=== PATIENT | female | born 1930 | race Caucasian/White ===

== ENCOUNTER 2016-12-15 18:19 | Inpatient (IN) | payer MEDICARE, OTHER ==
--- NOTE | 2016-12-15 19:29 | RADIOLOGY REPORT (SQ) ---
EXAM DESCRIPTION: HIP RIGHT AP/LATERAL COMPLETED DATE/TIME: 12/15/2016 7:13 pm REASON FOR STUDY: FALL COMPARISON: None. NUMBER OF VIEWS: Two views. TECHNIQUE: AP pelvis and additional frog-leg view of the right hip. LIMITATIONS: None. FINDINGS: MINERALIZATION: Normal. RIGHT HIP: No fracture or dislocation. No worrisome bone lesions. LEFT HIP: No fracture or dislocation. No worrisome bone lesions. PUBIS AND ISCHIUM: Right superior and right inferior pubic rami fractures. PELVIS: No fracture. SACRUM: No fracture or dislocation. No worrisome bone lesions. LOWER LUMBAR SPINE: No fracture or dislocation. No worrisome bone lesions. No significant disc disea se. SOFT TISSUES: No findings. OTHER: No other significant finding. IMPRESSION: RIGHT SUPERIOR AND RIGHT INFERIOR PUBIC RAMI FRACTURES. NO FEMORAL NECK FRACTURE. TECHNICAL DOCUMENTATION: JOB ID: [id number] [employer]- All Rights Reserved
[2016-12-15] MEDS ORDERED: ACETAMINOPHEN 325 MG TABLET PO ONE (20:10)
--- NOTE | 2016-12-15 20:11 | ER Document Report ---
ED General - General Chief Complaint: Fall Stated Complaint: RT HIP PAIN Time Seen by Provider: 12/15/16 19:18 Notes: Patient is an 85-year-old female who presents after having a mechanical fall landing onto her right hip and elbow. Patient states that since that time she has had a dull, constant, aching pain to the right hip. Any movement of the hip or attempts at walking or standing worsen the pain. She states that she has been unable to bear weight without assistance since the fall. She denies any head or neck trauma. She denies any history of similar injury to the right hip in the past. She does arrive by EMS. TRAVEL OUTSIDE OF THE [place] IN LAST 30 DAYS: No - Related Data Allergies/Adverse Reactions: No Known Allergies Allergy (Verified 12/15/16 20:35) Home Medications: Current Home Medications Aspirin [Aspirin EC] 81 mg PO DAILY 12/15/16 [History] Carvedilol [Coreg 6.25 mg Tablet] 6.25 mg PO Q12 12/15/16 [History] Valsartan [Diovan 160 mg Tablet] 160 mg PO QAM 12/15/16 [History] Past Medical History - General Information source: Patient - Social History Smoking Status: Never Smoker Chew tobacco use (# tins/day): No Frequency of alcohol use: None Drug Abuse: None Lives with: Spouse/Significant other Family History: Reviewed & Not Pertinent - Past Medical History Cardiac Medical History: Reports: Hx Hypertension Past Surgical History: Reports: Hx Appendectomy, Hx Bowel Surgery, Hx Cardiac Catheterization, Hx Tonsillectomy - Immunizations Hx Diphtheria, Pertussis, Tetanus Vaccination: Yes Review of Systems - Review of Systems Notes: Constitutional: Negative for fever. Eyes: Negative for visual changes. ENT: Negative for facial injury Cardiovascular: Negative for chest injury. Respiratory: Negative for shortness of breath. Gastrointestinal: Negative for abdominal injury. Genitourinary: Negative for genital injury Musculoskeletal: Positive for right hip and right elbow injury Skin: Positive for laceration/abrasions. Neurological: Negative for head injury. Physical Exam - Vital signs Vitals: Temp Pulse Resp BP Pulse Ox 98 F 70 15 192/78 H 98 12/15/16 18:55 12/15/16 18:55 12/15/16 18:55 12/15/16 18:55 12/15/16 18:55 Interpretation: Hypertensive Notes: PHYSICAL EXAMINATION: GENERAL: Well-appearing, no acute distress. HEAD: Atraumatic, normocephalic. EYES: Pupils equal round and reactive to light, extraocular movements intact, sclera anicteric, conjunctiva are normal. ENT: nares patent, no oral pharyngeal trauma. No hemotympanum, no Huntley's sign , no raccoon eyes. NECK: No midline cervical spine tenderness. Patient able to move their head to 45 bilaterally without any discomfort. LUNGS: Breath sounds clear to auscultation bilaterally and equal. No wheezes rales or rhonchi. HEART: Regular rate and rhythm without murmurs. CHEST WALL: No ecchymosis over the chest wall. ABDOMEN: Soft, nontender, normoactive bowel sounds. No guarding, no rebound. No abdominal bruising EXTREMITIES: Mild pain with axial loading of the right hip and internal rotation of the right hip. No pitting or edema. No long bone deformities. BACK: No midline spinal tenderness, step-offs, or deformities. NEUROLOGICAL: Face symmetric. Tongue protrudes midline. Extraocular motions intact. Pupils are 2 mm and equally reactive. 5 out of 5 strength in both the distal and proximal upper and lower extremities bilaterally. Sensation is grossly intact throughout. Finger to nose testing normal. Pronator drift normal. PSYCH: Normal mood, normal affect. SKIN: Warm, Dry, normal turgor, skin avulsions to the right elbow without any deformity to the region Course - Re-evaluation Re-evalutation: 12/15/16 20:10 Patient presents after a mechanical fall onto her right hip. Patient is very clear that she did not strike her head or neck. X-rays do demonstrate a superior and inferior rami fracture on the right. Patient has not been able to ambulate or bear weight since that time. She did also sustain a skin avulsion to the right elbow without any repairable lacerations. Uncertain of last tetanus update. This has been given. We do not have orthopedic surgery supervisor stone but given that these rami fractures are not surgical, I have discussed with the family transfer versus staying here in the hospital for physical therapy assessment and disposition planning. They are agreeable to not being transferred and recognized that they will not have an orthopedic surgical consultation during this hospitalization. - Vital Signs Vital signs: Temp Pulse Resp BP Pulse Ox 97.7 F 91 18 176/70 H 98 10/14/17 00:37 12/16/16 00:37 12/16/16 00:37 12/16/16 00:37 12/16/16 00:37 - Laboratory Result Diagrams: 12/15/16 20:20 12/15/16 20:20 Laboratory results interpreted by me: 12/15/16 12/15/16 20:20 20:22 BUN 24 H Creatinine 1.86 H Est GFR ( Amer) 31 L Est GFR (Non-Af Amer) 26 L Urine Urobilinogen 2.0 H - Diagnostic Test Radiology reviewed: Image reviewed, Reports reviewed Radiology results interpreted by me: 12/15/16 20:11 Right hip: Superior and inferior rami fractures Discharge - Discharge Clinical Impression: Fracture of right pelvis Qualifiers: Encounter type: initial encounter Pelvic bone location: pubis Sublocation of pubis: other portion of pubis Fracture type: closed Qualified Code(s): S32.591A - Other specified fracture of right pubis, initial encounter for closed fracture Condition: Good Disposition: ADMITTED INPATIENT Admitting Provider: Hospitalist - [facility] Unit Admitted: Medical Floor
[2016-12-15] MEDS ORDERED: HYDRALAZINE HCL INJ/PF 20 MG/1 ML SDV IV PRN (20:36)
[2016-12-15] MEDS ORDERED: MAG HYDROX/AL HYDROX/SIMETH SUSP 30 ML UDCUP PO PRN (20:37)
[2016-12-15 20:56] LABS: ABSOLUTE EOSINOPHILS # (AUTO) 0.1 10^3/uL (0.0-0.6); ABSOLUTE LYMPHOCYTES (AUTO) 1.5 10^3/uL (0.5-4.7); ABSOLUTE MONOCYTES (AUTO) 0.4 10^3/uL (0.1-1.4); ABSOLUTE NEUT (AUTO) 4.2 10^3/uL (1.7-8.2); BASOPHILS % (AUTO) 0.2 % (0-2); EOSINOPHILS % (AUTO) 1.3 % (0-6); HEMATOCRIT 38.3 % (36.0-47.0); HEMOGLOBIN 13.2 g/dL (12.0-15.5); HGB HCT DIFFERENCE 1.3; LYMPHOCYTES % (AUTO) 23.7 % (13-45); MEAN CORPUSCULAR HEMOGLOBIN 32.4 pg (27.0-33.4); MEAN CORPUSCULAR HGB CONC 34.5 g/dL (32.0-36.0); MEAN CORPUSCULAR VOLUME 94 fl (80-97); MONOCYTES % (AUTO) 6.3 % (3-13); RED BLOOD COUNT 4.07 10^6/uL (3.72-5.28); RED CELL DISTRIBUTION WIDTH 13.3 % (11.5-14.0); SEGMENTED NEUTROPHILS % (AUTO) 68.5 % (42-78); WHITE BLOOD COUNT 6.1 10^3/uL (4.0-10.5)
[2016-12-15 20:59] LABS: APPEARANCE,URINE CLEAR; BILIRUBIN,URINE NEGATIVE (NEGATIVE); GLUCOSE, URINE NEGATIVE (NEGATIVE); KETONES,URINE NEGATIVE (NEGATIVE); LEUKOCYTE ESTERASE,URINE NEGATIVE (NEGATIVE); NITRITE,URINE NEGATIVE (NEGATIVE); PROTEIN,URINE NEGATIVE (NEGATIVE); URINE SPECIFIC GRAVITY 1.005
[2016-12-15 21:12] LABS: ANION GAP 14 (5-19); BLOOD UREA NITROGEN 24 mg/dL (7-20); CALCIUM 9.5 mg/dL (8.4-10.2); CARBON DIOXIDE 23 mmol/L (22-30); CHLORIDE 103 mmol/L (98-107); CREATININE RESULT 1.86 mg/dL (0.52-1.25); GLUCOSE 97 mg/dL (75-110); POTASSIUM 4.2 mmol/L (3.6-5.0); SODIUM 139.8 mmol/L (137-145)
[2016-12-15] MEDS ORDERED: INFLUENZA ADLT QUAD (36MOS+) 2017-18 VAC 0.5 ML SYR IM PRN (23:45)
[2016-12-16] MEDS ORDERED: NORMAL SALINE 1000 ML 1,000 ML IV PRN (00:45)
[2016-12-16] MEDS: CARVEDILOL 6.25 MG TABLET PO SCH ×3 (01:25→22:50)
[2016-12-16] MEDS: HEPARIN SOD (PORCINE) 5,000 UNIT/ML 1 ML SYRINGE SUBCUT SCH ×4 (02:51→23:27)
--- NOTE | 2016-12-16 06:36 | PDOC H&P ---
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 She had been in her usual state of health until sustaining a mechanical fall missing the last step of a staircase. This resulted in a fall to the right side and intractable pain with weightbearing prompting evaluation emergency room where she is found to have right sided inferior and superior rami fracture without femoral fracture. Patient states she otherwise feels well and is not on any new medications that may have contributed to fall. Her lab workup reveals renal failure but unknown baseline. She denies head trauma, loss of consciousness, chest pain or shortness of breath and is referred to the hospitalist for admission. Past Medical History Cardiac Medical History: Reports: Hypertension Pulmonary Medical History: Reports: None EENT Medical History: Reports: Eyes - Macular degeneration and blindness Past Surgical History Past Surgical History: Reports: Appendectomy, Cardiac Catheterization, Tonsillectomy Social History Information Source: Patient, Emergency Med Personnel, [facility] Records Lives with: Spouse/Significant other Smoking Status: Never Smoker Frequency of Alcohol Use: None Drugs: None Family History Family History: Reviewed & Not Pertinent Parental Family History Reviewed: No Children Family History Reviewed: No Sibling(s) Family History Reviewed.: No Medication/Allergy Home Medications: Aspirin [Aspirin EC] 81 mg PO DAILY 12/15/16 Carvedilol [Coreg 6.25 mg Tablet] 6.25 mg PO Q12 12/15/16 Valsartan [Diovan 160 mg Tablet] 160 mg PO QAM 12/15/16 Allergies/Adverse Reactions: No Known Allergies Allergy (Verified 12/15/16 20:35) Review of Systems Constitutional: ABSENT: chills, fever(s), headache(s), weight gain, weight loss Eyes: ABSENT: visual disturbances Ears: ABSENT: hearing changes Cardiovascular: ABSENT: chest pain, dyspnea on exertion, edema, orthropnea, palpitations Respiratory: ABSENT: cough, hemoptysis Gastrointestinal: ABSENT: abdominal pain, constipation, diarrhea, hematemesis, hematochezia, nausea, vomiting Genitourinary: ABSENT: dysuria, hematuria Musculoskeletal: ABSENT: joint swelling Integumentary: ABSENT: rash, wounds Neurological: ABSENT: abnormal gait, abnormal speech, confusion, dizziness, focal weakness, syncope Psychiatric: ABSENT: anxiety, depression, homidical ideation, suicidal ideation Endocrine: ABSENT: cold intolerance, heat intolerance, polydipsia, polyuria Hematologic/Lymphatic: ABSENT: easy bleeding, easy bruising Physical Exam Vital Signs: Temp Pulse Resp BP Pulse Ox 97.6 F 74 18 122/60 94 12/16/16 03:59 12/16/16 03:59 12/16/16 03:59 12/16/16 03:59 12/16/16 03:59 Intake & Output 12/14/16 12/15/16 12/16/16 11:59 11:59 11:59 Weight 64.4 kg General appearance: PRESENT: cooperative, mild distress, well-developed, well- nourished Head exam: PRESENT: atraumatic, normocephalic Eye exam: PRESENT: conjunctiva pink, EOMI, PERRLA. ABSENT: scleral icterus Ear exam: PRESENT: normal external ear exam Mouth exam: PRESENT: moist, tongue midline Neck exam: ABSENT: carotid bruit, JVD, lymphadenopathy, thyromegaly Respiratory exam: PRESENT: clear to auscultation roselia. ABSENT: rales, rhonchi, wheezes Cardiovascular exam: PRESENT: RRR. ABSENT: diastolic murmur, rubs, systolic murmur Pulses: PRESENT: normal dorsalis pedis pul Vascular exam: PRESENT: normal capillary refill GI/Abdominal exam: PRESENT: normal bowel sounds, soft. ABSENT: distended, guarding, mass, organolmegaly, rebound, tenderness Rectal exam: PRESENT: deferred Extremities exam: PRESENT: tenderness - Right lower extremity range of motion limited by pain. ABSENT: calf tenderness, clubbing, full ROM, pedal edema Musculoskeletal exam: ABSENT: full ROM - Right lower extremity range of motion limited by pain Neurological exam: PRESENT: alert, awake, oriented to person, oriented to place , oriented to time, oriented to situation, CN II-XII grossly intact. ABSENT: motor sensory deficit Psychiatric exam: PRESENT: appropriate affect, normal mood. ABSENT: homicidal ideation, suicidal ideation Skin exam: PRESENT: dry, intact, warm. ABSENT: cyanosis, rash Results Impressions: Hip/Pelvis X-Ray 12/15/16 18:54 IMPRESSION: RIGHT SUPERIOR AND RIGHT INFERIOR PUBIC RAMI FRACTURES. NO FEMORAL NECK FRACTURE. Assessment & Plan - Diagnosis (1) Fracture of right pelvis Qualifiers: Encounter type: initial encounter Pelvic bone location: pubis Sublocation of pubis: other portion of pubis Fracture type: closed Qualified Code(s): S32.591A - Other specified fracture of right pubis, initial encounter for closed fracture Is this a current diagnosis for this admission?: Yes Plan: Nondisplaced pelvic fracture symptomatic management and physical therapy. Discharge planning for consideration of rehab (2) Intractable pain Is this a current diagnosis for this admission?: Yes Plan: Renal failure limiting options, Tylenol and lidocaine patch. (3) Falls Is this a current diagnosis for this admission?: Yes Plan: Physical therapy evaluation (4) Renal failure Is this a current diagnosis for this admission?: Yes Plan: Somewhat prerenal IV fluid challenge and reevaluation of chemistry. - Time Time Spent: 30 to 50 Minutes - Inpatient Certification Medical Necessity: Need Close Monitoring Due to Risk of Patient Decompensation
[2016-12-16 06:57] LABS: ANION GAP 8 (5-19); BLOOD UREA NITROGEN 23 mg/dL (7-20); CALCIUM 8.9 mg/dL (8.4-10.2); CARBON DIOXIDE 24 mmol/L (22-30); CHLORIDE 107 mmol/L (98-107); CREATININE RESULT 1.81 mg/dL (0.52-1.25); GLUCOSE 90 mg/dL (75-110); POTASSIUM 4.6 mmol/L (3.6-5.0); SODIUM 139.4 mmol/L (137-145)
[2016-12-16] MEDS: ACETAMINOPHEN 325 MG TABLET PO PRN (09:11)
[2016-12-16] MEDS: VALSARTAN 160 MG TABLET PO SCH (09:11)
[2016-12-16] MEDS ORDERED: SULFAMETHOXAZOLE/TRIMETHOPRIM 800-160 MG TABLET PO ONE (11:00)
[2016-12-16] MEDS: ASPIRIN 81 MG TABLET, ENT COATED PO SCH (11:23)
[2016-12-16] MEDS: DOCUSATE SODIUM 100 MG CAPSULE PO SCH ×2 (11:24→17:25)
[2016-12-16] MEDS ORDERED: LIDOCAINE 5% (700 MG) TRANSDERMAL ADH..PATCH TP ONE (12:00)
--- NOTE | 2016-12-16 12:04 | PDOC PROGRESS REPORT ---
Subjective Progress Note for:: 12/16/16 Subjective:: Pt is seen resting in bed comfortably with her daughter present. She reports that she is relatively pain free when lying still. She did work with PT/OT this morning and was able to take one step. She reports nasal congestion related to allergic symptoms and requests to take her flonase and to be placed on an allergy medication. She also asks to have her LLE looked at. She reports a wound to her leg from a fall approximately a month ago that became infected. She completed a course of keflex without improvements and so was then placed on Bactrim with Silvadene dressings. She reports that the wound has improved since beginning this course of therapy and requests to continue it while admitted. Otherwise, she states she is feeling fine and has no other questions or concerns. ROS as above and otherwise negative. Physical Exam Vital Signs: Temp Pulse Resp BP Pulse Ox 98.2 F 77 16 148/63 H 98 12/16/16 08:02 12/16/16 08:02 12/16/16 08:02 12/16/16 08:02 12/16/16 08:02 Intake & Output 12/15/16 12/16/16 12/17/16 06:59 06:59 06:59 Weight 64.4 kg General appearance: PRESENT: no acute distress, cooperative, well-developed, well-nourished Head exam: PRESENT: atraumatic, normocephalic Eye exam: PRESENT: conjunctiva pink, EOMI, PERRLA. ABSENT: scleral icterus Ear exam: PRESENT: normal external ear exam Mouth exam: PRESENT: moist, tongue midline Neck exam: ABSENT: carotid bruit, JVD, lymphadenopathy, thyromegaly Respiratory exam: PRESENT: clear to auscultation roselia. ABSENT: rales, rhonchi, wheezes Cardiovascular exam: PRESENT: RRR. ABSENT: diastolic murmur, rubs, systolic murmur Pulses: PRESENT: normal dorsalis pedis pul Vascular exam: PRESENT: normal capillary refill GI/Abdominal exam: PRESENT: normal bowel sounds, soft. ABSENT: distended, guarding, mass, organolmegaly, rebound, tenderness Rectal exam: PRESENT: deferred Extremities exam: PRESENT: tenderness - Right lower extremity ROM is limited by pain. ABSENT: calf tenderness, clubbing, pedal edema Neurological exam: PRESENT: alert, awake, oriented to person, oriented to place , oriented to time, oriented to situation, CN II-XII grossly intact. ABSENT: motor sensory deficit Psychiatric exam: PRESENT: appropriate affect, normal mood. ABSENT: homicidal ideation, suicidal ideation Skin exam: PRESENT: dry, warm. ABSENT: cyanosis, intact - Approximately 6 x 3 cm wound to anterior left lower leg. Wound bed w/ slough present. No purulent drainage or foul smell. Surrounding skin is w/o erythema., rash Results Laboratory Results: 12/16/16 06:30 12/16/16 06:30 Sodium 139.4 Potassium 4.6 Chloride 107 Carbon Dioxide 24 Anion Gap 8 BUN 23 H Creatinine 1.81 H Est GFR ( Amer) 32 L Est GFR (Non-Af Amer) 26 L Glucose 90 Calcium 8.9 Impressions: Hip/Pelvis X-Ray 12/15/16 18:54 IMPRESSION: RIGHT SUPERIOR AND RIGHT INFERIOR PUBIC RAMI FRACTURES. NO FEMORAL NECK FRACTURE. Assessment & Plan - Diagnosis (1) Fracture of right pelvis Qualifiers: Encounter type: initial encounter Pelvic bone location: pubis Sublocation of pubis: other portion of pubis Fracture type: closed Qualified Code(s): S32.591A - Other specified fracture of right pubis, initial encounter for closed fracture Is this a current diagnosis for this admission?: Yes Plan: Nondisplaced pelvic fracture. 1- Appreciate Pt/OT 2- Tylenol and Lidocaine patch 3- Low dose hydrocodone for break through pain 4- Discharge planning for consideration of rehab (2) Intractable pain Is this a current diagnosis for this admission?: Yes Plan: Plan as above. (3) Renal failure Qualifiers: Renal failure chronicity: unspecified chronicity Qualified Code(s): N19 - Unspecified kidney failure Is this a current diagnosis for this admission?: Yes Plan: IVF replacement; will monitor labs. 1- Avoid nephrotoxic medications (4) Wound of skin Plan: Wound to lower left leg present on admission. 1- Wet to dry dressing BID 2- Continue Bactrim (5) Falls Is this a current diagnosis for this admission?: Yes Plan: 1- Appreciate PT/OT 2- Will benefit from rehab - Time Time Spent with patient: 15-24 minutes Medications reviewed and adjusted accordingly: Yes Anticipated discharge: Acute Rehab Within: within 36 hours
[2016-12-16] MEDS: SIMETHICONE 80 MG TAB.CHEW PO PRN (17:25)
[2016-12-16] MEDS: HYDROCODONE/ACETAMINOPHEN 5-325 MG TABLET PO PRN (22:49)
[2016-12-16] MEDS: SULFAMETHOXAZOLE/TRIMETHOPRIM 800-160 MG TABLET PO SCH (22:50)
[2016-12-16] MEDS: CETIRIZINE 10 MG TABLET PO SCH (22:50)
[2016-12-17] MEDS: SIMETHICONE 80 MG TAB.CHEW PO PRN ×2 (04:37→10:23)
[2016-12-17] MEDS: HEPARIN SOD (PORCINE) 5,000 UNIT/ML 1 ML SYRINGE SUBCUT SCH ×3 (05:29→21:09)
[2016-12-17 07:23] LABS: ANION GAP 11 (5-19); BLOOD UREA NITROGEN 18 mg/dL (7-20); CALCIUM 9.2 mg/dL (8.4-10.2); CARBON DIOXIDE 20 mmol/L (22-30); CHLORIDE 107 mmol/L (98-107); CREATININE RESULT 1.67 mg/dL (0.52-1.25); GLUCOSE 113 mg/dL (75-110); SODIUM 137.7 mmol/L (137-145)
[2016-12-17] MEDS ORDERED: CARVEDILOL 6.25 MG TABLET PO ONE (09:30)
--- NOTE | 2016-12-17 09:34 | RADIOLOGY REPORT (SQ) ---
EXAM DESCRIPTION: ABDOMEN 2 VIEWS COMPLETED DATE/TIME: 12/17/2016 8:50 am REASON FOR STUDY: abd discomfort, distention COMPARISON: None. NUMBER OF VIEWS: Two views. TECHNIQUE: Supine and upright radiographic images of the abdomen acquired. LIMITATIONS: None. FINDINGS: FREE AIR: None. No abnormal gas collections. LUNG BASES: Clear. BOWEL GAS PATTERN: There is stool in the ascending colon and rectosigmoid. Gaseous distension of the remainder of the colon. Few air-filled dilated small bowel loops are present in the mid abdomen. M ild gaseous distension of the stomach fundus. This is an abnormal but nonspecific bowel gas pattern. There is evidence of prior surgery in the right lower quadrant and pelvis with multiple surgical cl ips. CALCIFICATIONS: No suspicious calcifications. SOFT TISSUES: No gross mass or suggestion of organomegaly. HARDWARE: Multiple surgical clips in the right lower quadrant and pelvis BONES: Osteoporotic. No acute changes OTHER: No other significant finding. IMPRESSION: Abnormal but nonspecific bowel gas pattern. TECHNICAL DOCUMENTATION: JOB ID: [id number] [employer]- All Rights Reserved
--- NOTE | 2016-12-17 09:35 | RADIOLOGY REPORT (SQ) ---
EXAM DESCRIPTION: CHEST SINGLE VIEW COMPLETED DATE/TIME: 12/17/2016 9:20 am REASON FOR STUDY: chest discomfort COMPARISON: None. EXAM PARAMETERS: NUMBER OF VIEWS: One view. TECHNIQUE: Single frontal radiographic view of the chest acquired. RADIATION DOSE: NA LIMITATIONS: None. FINDINGS: LUNGS AND PLEURA: No opacities, masses or pneumothorax. No pleural effusion. MEDIASTINUM AND HILAR STRUCTURES: No masses. Contour normal. HEART AND VASCULAR STRUCTURES: Heart normal in size. Normal vasculature. BONES: Osteoporotic. Loose bodies left shoulder joint. HARDWARE: None in the chest. OTHER: No other significant finding. IMPRESSION: NO ACUTE RADIOGRAPHIC FINDING IN THE CHEST. TECHNICAL DOCUMENTATION: JOB ID: [id number]
[2016-12-17] MEDS: VALSARTAN 160 MG TABLET PO SCH ×2 (10:17→10:23)
[2016-12-17] MEDS: ASPIRIN 81 MG TABLET, ENT COATED PO SCH (10:24)
[2016-12-17] MEDS: DOCUSATE SODIUM 100 MG CAPSULE PO SCH ×2 (10:24→16:39)
[2016-12-17] MEDS: SULFAMETHOXAZOLE/TRIMETHOPRIM 800-160 MG TABLET PO SCH ×2 (10:24→21:08)
[2016-12-17] MEDS: FLUTICASONE NASAL SPRAY 50 MCG/SPRY 120 SPRAY/16 GM NASL SCH (10:32)
--- NOTE | 2016-12-17 11:24 | PDOC PROGRESS REPORT ---
Subjective Progress Note for:: 12/17/16 Subjective:: Pt is seen resting in bed. She reports that she is "not doing well" and describes continued abdominal discomfort and bloating, left arm "heaviness that tingles," and a generalized sense of unease. She states that it has been several days since her last bm and attributes her symptoms to possible constipation and "gas pains." She reports continued nasal congestion related to allergic symptoms. She denies headache, dizziness, chest pain, palpitations, dyspnea, back pain, abdominal pain, nausea, vomiting, and diarrhea. ROS as above and otherwise negative. Physical Exam Vital Signs: Temp Pulse Resp BP Pulse Ox 97.4 F 94 18 197/89 H 98 12/17/16 09:36 12/17/16 10:00 12/17/16 09:36 12/17/16 09:36 12/17/16 09:36 Intake & Output 12/16/16 12/17/16 12/18/16 06:59 06:59 06:59 Intake Total 950 200 Balance 950 200 Weight 64.4 kg 65.1 kg General appearance: PRESENT: no acute distress, well-developed, well-nourished Head exam: PRESENT: atraumatic, normocephalic Eye exam: PRESENT: conjunctiva pink, EOMI, PERRLA. ABSENT: scleral icterus Ear exam: PRESENT: normal external ear exam Mouth exam: PRESENT: moist, tongue midline Neck exam: ABSENT: carotid bruit, JVD, lymphadenopathy, thyromegaly Respiratory exam: PRESENT: clear to auscultation roselia, symmetrical, unlabored. ABSENT: rales, rhonchi, tachypnea, wheezes Cardiovascular exam: PRESENT: RRR, +S1, +S2. ABSENT: diastolic murmur, rubs, systolic murmur Pulses: PRESENT: normal dorsalis pedis pul Vascular exam: PRESENT: normal capillary refill GI/Abdominal exam: PRESENT: normal bowel sounds, soft. ABSENT: distended, guarding, mass, organolmegaly, rebound, tenderness Rectal exam: PRESENT: deferred Extremities exam: PRESENT: full ROM, tenderness - Rt lower extremity ROM limited by pain. ABSENT: calf tenderness, clubbing, pedal edema Neurological exam: PRESENT: alert, awake, oriented to person, oriented to place , oriented to time, oriented to situation, CN II-XII grossly intact. ABSENT: motor sensory deficit Psychiatric exam: PRESENT: appropriate affect, normal mood. ABSENT: homicidal ideation, suicidal ideation Skin exam: PRESENT: dry, warm. ABSENT: cyanosis, intact - Wound to anterior left lower leg; not visualized to day - dresing in place, rash Results Laboratory Results: 12/17/16 06:27 12/17/16 06:27 Sodium 137.7 Potassium 4.0 Chloride 107 Carbon Dioxide 20 L Anion Gap 11 BUN 18 Creatinine 1.67 H Est GFR ( Amer) 35 L Est GFR (Non-Af Amer) 29 L Glucose 113 H Calcium 9.2 12/17/16 06:27 Troponin I < 0.012 Impressions: Hip/Pelvis X-Ray 12/15/16 18:54 IMPRESSION: RIGHT SUPERIOR AND RIGHT INFERIOR PUBIC RAMI FRACTURES. NO FEMORAL NECK FRACTURE. Abdomen X-Ray 12/17/16 00:00 IMPRESSION: Abnormal but nonspecific bowel gas pattern. Chest X-Ray 12/17/16 00:00 IMPRESSION: NO ACUTE RADIOGRAPHIC FINDING IN THE CHEST. 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 Now with vague, atypical chest pain symptoms. EKG demonstrates ST depression V3-V5. Will initiate Chest Pain protocol and transfer to [facility] for continuous cardiac telemetry. Chest xray without acute findings. (2) Fracture of right pelvis Qualifiers: Encounter type: initial encounter Pelvic bone location: pubis Sublocation of pubis: other portion of pubis Fracture type: closed Qualified Code(s): S32.591A - Other specified fracture of right pubis, initial encounter for closed fracture Is this a current diagnosis for this admission?: Yes Plan: Nondisplaced pelvic fracture. 1- Appreciate Pt/OT 2- Tylenol and Lidocaine patch 3- Low dose hydrocodone for break through pain 4- Discharge planning for consideration of rehab (3) Intractable pain Is this a current diagnosis for this admission?: Yes Plan: Pain is improved today. Plan as above. (4) Renal failure Qualifiers: Renal failure chronicity: unspecified chronicity Qualified Code(s): N19 - Unspecified kidney failure Is this a current diagnosis for this admission?: Yes Plan: Per family, no history of CKD. Creatinine trending down (1.86-->1.81-->1.67). Will continue to monitor. 1- Avoid nephrotoxic medications (5) Wound of skin Plan: Wound to lower left leg present on admission. 1- Wet to dry dressing BID 2- Continue Bactrim (6) Falls Is this a current diagnosis for this admission?: Yes Plan: 1- Appreciate PT/OT 2- Will benefit from rehab (7) Abdominal bloating Is this a current diagnosis for this admission?: Yes Plan: Flat/Upright ABD x-rays demonstrate a nonspecific gas pattern. Pt is without pain, nausea and vomiting. Report of constipation. 1- Fleets 2- PRN Smithecone and Maalox - Time Time Spent with patient: 35 or more minutes Medications reviewed and adjusted accordingly: Yes
[2016-12-17] MEDS ORDERED: NA PHOS,M-B/NA PHOS,DI-BA (ADULT) 133 ML ENEMA PR ONE (11:30)
--- NOTE | 2016-12-17 14:48 | EKG REPORT ---
SEVERITY:- ABNORMAL ECG - SINUS RHYTHM REPOL ABNRM, PROBABLE ISCHEMIA, ANT-LAT LEADS BORDERLINE PROLONGED QT INTERVAL : Confirmed by: Yoseph Alejandra MD 17-Dec-2016 14:47:44
[2016-12-17] MEDS: LIDOCAINE 5% (700 MG) TRANSDERMAL ADH..PATCH TP SCH (16:30)
[2016-12-17] MEDS: SODIUM CHLORIDE NASAL SPRAY 44 ML NASL SCH ×2 (16:39→21:07)
[2016-12-17] MEDS: CARVEDILOL 12.5 MG TABLET PO SCH (21:08)
[2016-12-17] MEDS: CETIRIZINE 10 MG TABLET PO SCH (21:08)
[2016-12-18] MEDS: HEPARIN SOD (PORCINE) 5,000 UNIT/ML 1 ML SYRINGE SUBCUT SCH ×3 (05:00→21:27)
--- NOTE | 2016-12-18 09:22 | Physician Advisory Note ---
Physician Advisor ProgressNote .: Pursuant to the plan for [facility], I have reviewed the medical record for this patient. Physician Advisor Statement: Please consider documenting, if you agree: 1. "Acute Renal Failure" (previous baseline Cr 0.84) - & what doing about it 2. "Acute metabolic acidosis assoc'd w/ARF" 3. Medical necessity: see below Status: Pt w/acute pelvic fx & suspected ARF, appropriate to come in as Obs initially for eval & pain control, IVF (1L given), f/u labs. After 1 MN in hospital (ED), Cr only slightly improved, though tx not clearly requiring hospital level care. After 2 MNs in hospital, Cr still not back to baseline, & pt developed new sx of atypical CP associated with EKG changes, needing eval spanning a 3rd MN in hospital. Therefore, appropriate to change to Inpatient status (especially if doing something r.e. ARF...). CK
[2016-12-18] MEDS: CARVEDILOL 12.5 MG TABLET PO SCH ×2 (10:05→21:24)
[2016-12-18] MEDS: ASPIRIN 81 MG TABLET, ENT COATED PO SCH (10:05)
[2016-12-18] MEDS: SULFAMETHOXAZOLE/TRIMETHOPRIM 800-160 MG TABLET PO SCH ×2 (10:06→21:24)
[2016-12-18] MEDS: LIDOCAINE 5% (700 MG) TRANSDERMAL ADH..PATCH TP SCH (10:07)
[2016-12-18] MEDS: FLUTICASONE NASAL SPRAY 50 MCG/SPRY 120 SPRAY/16 GM NASL SCH (10:08)
[2016-12-18] MEDS: SODIUM CHLORIDE NASAL SPRAY 44 ML NASL SCH ×4 (10:09→21:22)
[2016-12-18] MEDS: DOCUSATE SODIUM 100 MG CAPSULE PO SCH ×2 (10:09→18:00)
[2016-12-18] MEDS ORDERED: VALSARTAN 160 MG TABLET PO ONE (11:00)
[2016-12-18 13:10] LABS: ANION GAP 12 (5-19); BLOOD UREA NITROGEN 23 mg/dL (7-20); CALCIUM 9.1 mg/dL (8.4-10.2); CARBON DIOXIDE 21 mmol/L (22-30); CHLORIDE 102 mmol/L (98-107); CREATININE RESULT 1.78 mg/dL (0.52-1.25); GLUCOSE 94 mg/dL (75-110); POTASSIUM 4.4 mmol/L (3.6-5.0); SODIUM 135.2 mmol/L (137-145)
--- NOTE | 2016-12-18 14:58 | PDOC PROGRESS REPORT ---
Subjective Progress Note for:: 12/18/16 Subjective:: Pt is seen resting in bed with family present. She reports that she is feeling better than yesterday, however, is fatigued and "just not myself." She states that her feelings of malaise are vague and can not specify a specific source of her discomfort. She reports continued nasal congestion related to allergic symptoms, though states this is a normal finding for her. She does state that she had a bm yesterday and although feels some continued bloating, is improved from yesterday. She denies additional episodes of chest, back, and shoulder discomfort. She denies headache, dizziness, chest pain, palpitations, dyspnea, back pain, abdominal pain, nausea, vomiting, and diarrhea. ROS as above and otherwise negative. Physical Exam Vital Signs: Temp Pulse Resp BP Pulse Ox 97.8 F 80 18 129/49 H 95 12/18/16 13:01 12/18/16 13:01 12/18/16 13:01 12/18/16 13:01 12/18/16 13:01 Intake & Output 12/17/16 12/18/16 12/19/16 06:59 06:59 06:59 Intake Total 950 653 480 Output Total 0 Balance 950 653 480 Weight 65.1 kg 65 kg General appearance: PRESENT: no acute distress, disheveled, hard of hearing, well-developed, well-nourished Head exam: PRESENT: atraumatic, normocephalic Eye exam: PRESENT: conjunctiva pink, EOMI, PERRLA. ABSENT: scleral icterus Ear exam: PRESENT: normal external ear exam Mouth exam: PRESENT: moist, tongue midline Neck exam: ABSENT: carotid bruit, JVD, lymphadenopathy, thyromegaly Respiratory exam: PRESENT: clear to auscultation roselia. ABSENT: rales, rhonchi, wheezes Cardiovascular exam: PRESENT: RRR. ABSENT: diastolic murmur, rubs, systolic murmur Pulses: PRESENT: normal dorsalis pedis pul Vascular exam: PRESENT: normal capillary refill GI/Abdominal exam: PRESENT: normal bowel sounds, soft. ABSENT: distended, guarding, mass, organolmegaly, rebound, tenderness Rectal exam: PRESENT: deferred Extremities exam: PRESENT: full ROM. ABSENT: calf tenderness, clubbing, pedal edema Musculoskeletal exam: PRESENT: ambulatory - 1-2 steps with max assist, tenderness. ABSENT: full ROM - ROM limited 2/2 pain Neurological exam: PRESENT: alert, awake, oriented to person, oriented to place , oriented to time, oriented to situation, CN II-XII grossly intact. ABSENT: motor sensory deficit Psychiatric exam: PRESENT: appropriate affect, normal mood. ABSENT: homicidal ideation, suicidal ideation Skin exam: PRESENT: dry, intact, warm. ABSENT: cyanosis, rash Results Laboratory Results: 12/18/16 12:35 12/18/16 12:35 Sodium 135.2 L Potassium 4.4 Chloride 102 Carbon Dioxide 21 L Anion Gap 12 BUN 23 H Creatinine 1.78 H Est GFR ( Amer) 33 L Est GFR (Non-Af Amer) 27 L Glucose 94 Calcium 9.1 12/17/16 12/17/16 12/17/16 06:27 12:50 12:50 CK-MB (CK-2) 2.34 Troponin I < 0.012 < 0.012 12/17/16 18:05 CK-MB (CK-2) Troponin I 0.017 Impressions: Hip/Pelvis X-Ray 12/15/16 18:54 IMPRESSION: RIGHT SUPERIOR AND RIGHT INFERIOR PUBIC RAMI FRACTURES. NO FEMORAL NECK FRACTURE. Abdomen X-Ray 12/17/16 00:00 IMPRESSION: Abnormal but nonspecific bowel gas pattern. Chest X-Ray 12/17/16 00:00 IMPRESSION: NO ACUTE RADIOGRAPHIC FINDING IN THE CHEST. Assessment & Plan - Diagnosis (1) Acute kidney failure Qualifiers: Acute renal failure type: unspecified Qualified Code(s): N17.9 - Acute kidney failure, unspecified Is this a current diagnosis for this admission?: Yes Plan: Per family, no history of CKD. I nitially surmised to be r/t recent Cardiac Cath (November 2016) in 85 yo patient. Creatinine improved after and IVF were discontinued as patient had adequate p.o. intake. However, now with worsening kidney function (1.67--> 1.78) and hypertension as elevated as 197/89. Concern that pt has worsening Acute Renal Failure necessitating IVF and additional evaluation. 1- IVF 2- Renal u/s 3- Encourage po fluids 4- Avoid nephrotoxic medications (2) Fracture of right pelvis Qualifiers: Encounter type: initial encounter Pelvic bone location: pubis Sublocation of pubis: other portion of pubis Fracture type: closed Qualified Code(s): S32.591A - Other specified fracture of right pubis, initial encounter for closed fracture Is this a current diagnosis for this admission?: Yes Plan: Nondisplaced pelvic fracture. Requires max assist with ambulation 2/2 pain. Has had multiple falls in recent months, will benefit from continued PT/OT at discharge. 1- Appreciate Pt/OT 2- Tylenol and Lidocaine patch 3- Low dose hydrocodone for break through pain 4- Plan for short-term rehab at discharge (3) Intractable pain Is this a current diagnosis for this admission?: Yes Plan: Pain is improved today. Plan as above. (4) Wound of skin Plan: Wound to lower left leg present on admission. 1- Wet to dry dressing BID 2- Continue Bactrim (5) Falls Is this a current diagnosis for this admission?: Yes Plan: 1- Appreciate PT/OT 2- Will benefit from rehab (6) Abdominal bloating Is this a current diagnosis for this admission?: Yes Plan: Improved. Flat/Upright ABD x-rays demonstrate a nonspecific gas pattern. Pt is without pain, nausea and vomiting. Report of constipation, improved after fleets yesterday. 1- PRN Smithecone and Maalox (7) Atypical chest pain Is this a current diagnosis for this admission?: Yes Plan: Now resolved. 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 Family reports that cardiac catheter results were normal. Now with vague, atypical chest pain symptoms. EKG demonstrates ST depression V3-V5. Chest xray without acute findings. Serial cardiac enzymes negative. No further occurrences of pain. 1- Request Cardiac Cath results from [place] - Time Time Spent with patient: 35 or more minutes Anticipated discharge: Acute Rehab - Inpatient Certification Based on my medical assessment, after consideration of the patient's comorbidities, presenting symptoms, or acuity I expect that the services needed warrant INPATIENT care.: Yes I certify that my determination is in accordance with my understanding of Medicare's requirements for reasonable and necessary INPATIENT services [42 CFR 412.3e].: Yes Medical Necessity: Failure to Improve With Outpatient Therapy, Need For IV Fluids, Risk of Complication if Not Cared For in Hospital
[2016-12-18] MEDS: NORMAL SALINE 1000 ML 1,000 ML IV PRN (16:53)
[2016-12-18] MEDS: CETIRIZINE 10 MG TABLET PO SCH (21:25)
--- NOTE | 2016-12-19 03:21 | Physician Advisory Note ---
Physician Advisor ProgressNote .: Pursuant to the plan for [facility], I have reviewed the medical record for this patient. Physician Advisor Statement: When changing pt status after the initial status order has been placed, please use the "status change" order rather than editing/changing the initial status order. (Otherwise, it fouls up computer work processes. - IT has it on their "to-do" list to change order wording from "status admission" order to "initial status order", or something of the sort, so it will be clearer that that is the first status order to use, but not the status order to change a pt from "Place in Obs" to "Admit to Inpatient".) Thanks for your all you do. Feel free to call/text/email if ?lang BARRERA [phone] [email or web address]
--- NOTE | 2016-12-19 03:33 | RADIOLOGY REPORT (SQ) ---
EXAM DESCRIPTION: U/S RETROPERITON (RENAL/AORTA) COMPLETED DATE/TIME: 12/19/2016 1:52 am REASON FOR STUDY: ISAÍAS, hypertension COMPARISON: None. TECHNIQUE: Grayscale images acquired of the kidneys and bladder and recorded on PACS. Additional dulce ected color Doppler images recorded. LIMITATIONS: Overlying bowel gas. Limited patient mobility due to pelvic fracture. FINDINGS: RIGHT KIDNEY: Measures 8.1 cm. The inferior pole is obscured by overlying bowel gas. Inc reased echogenicity of the renal parenchyma. No hydronephrosis. LEFT KIDNEY: Measures 10.6 cm. Mild hydronephrosis. Small amount of perinephric fluid. Increased echogenicity of the renal parenchyma. BLADDER: Bilateral ureteral jets were visualized. IMPRESSION: Mild left hydronephrosis. Mild left perinephric fluid. Suboptimal visualization of the right kidney. No right hydronephrosis. Increased echogenicity of the renal parenchyma, suggestive of medical renal disease. TECHNICAL DOCUMENTATION: JOB ID: [id number] [employer]- All Rights Reserved
[2016-12-19] MEDS: HEPARIN SOD (PORCINE) 5,000 UNIT/ML 1 ML SYRINGE SUBCUT SCH ×3 (06:18→22:43)
[2016-12-19 06:50] LABS: ANION GAP 8 (5-19); BLOOD UREA NITROGEN 21 mg/dL (7-20); CALCIUM 8.6 mg/dL (8.4-10.2); CARBON DIOXIDE 22 mmol/L (22-30); CHLORIDE 107 mmol/L (98-107); CREATININE RESULT 1.77 mg/dL (0.52-1.25); GLUCOSE 91 mg/dL (75-110); POTASSIUM 4.1 mmol/L (3.6-5.0); SODIUM 137.2 mmol/L (137-145)
[2016-12-19] MEDS: LIDOCAINE 5% (700 MG) TRANSDERMAL ADH..PATCH TP SCH (09:16)
[2016-12-19] MEDS: FLUTICASONE NASAL SPRAY 50 MCG/SPRY 120 SPRAY/16 GM NASL SCH (09:29)
[2016-12-19] MEDS: SODIUM CHLORIDE NASAL SPRAY 44 ML NASL SCH ×4 (09:29→22:37)
[2016-12-19] MEDS: ACETAMINOPHEN 325 MG TABLET PO PRN (09:30)
[2016-12-19] MEDS: CARVEDILOL 12.5 MG TABLET PO SCH ×2 (09:31→22:37)
[2016-12-19] MEDS: ASPIRIN 81 MG TABLET, ENT COATED PO SCH (09:31)
[2016-12-19] MEDS: DOCUSATE SODIUM 100 MG CAPSULE PO SCH ×2 (09:31→17:47)
[2016-12-19] MEDS: VALSARTAN 160 MG TABLET PO SCH (09:32)
[2016-12-19] MEDS: SULFAMETHOXAZOLE/TRIMETHOPRIM 800-160 MG TABLET PO SCH ×2 (09:32→22:36)
[2016-12-19] MEDS: HYDROCODONE/ACETAMINOPHEN 5-325 MG TABLET PO PRN ×2 (11:50→17:47)
[2016-12-19] MEDS: NORMAL SALINE 1000 ML 1,000 ML IV PRN (12:03)
--- NOTE | 2016-12-19 18:49 | PDOC PROGRESS REPORT ---
Subjective Progress Note for:: 12/19/16 Subjective:: The patient states that she slept well overnight. She took a half dose of her [place] when she was going to get up and work with PT. Otherwise, she is only required Tylenol. I have encouraged her that if she needs the [place] that she should take it. I reviewed renal ultrasound findings with her and her daughter. At this point we are awaiting placement. Physical Exam Vital Signs: Temp Pulse Resp BP Pulse Ox 97.4 F 70 18 109/48 L 95 12/19/16 15:56 12/19/16 15:56 12/19/16 15:56 12/19/16 15:56 12/19/16 15:56 Intake & Output 12/18/16 12/19/16 12/20/16 06:59 06:59 06:59 Intake Total 653 2461 475 Output Total 0 Balance 653 2461 475 Weight 65 kg 65 kg GENERAL: This is a well-developed and nourished appearing elderly white female resting in bed listening to her discman in no acute distress. HEART: Regular rate and rhythm. No murmurs, rubs or gallops. LUNGS: Clear to auscultation bilaterally with equal rise and fall of the chest. ABDOMEN: Soft, nontender, appears bloated with normoactive bowel sounds EXTREMETIES: No clubbing, cyanosis or edema. 2+ peripheral pulses bilaterally. NEURO: Awake, alert and oriented 3. Patient is hard of hearing. Results Laboratory Results: 12/19/16 06:27 12/19/16 06:27 Sodium 137.2 Potassium 4.1 Chloride 107 Carbon Dioxide 22 Anion Gap 8 BUN 21 H Creatinine 1.77 H Est GFR ( Amer) 33 L Est GFR (Non-Af Amer) 27 L Glucose 91 Calcium 8.6 12/17/16 12/17/16 12/17/16 06:27 12:50 12:50 CK-MB (CK-2) 2.34 Troponin I < 0.012 < 0.012 12/17/16 18:05 CK-MB (CK-2) Troponin I 0.017 Impressions: Hip/Pelvis X-Ray 12/15/16 18:54 IMPRESSION: RIGHT SUPERIOR AND RIGHT INFERIOR PUBIC RAMI FRACTURES. NO FEMORAL NECK FRACTURE. Abdomen X-Ray 12/17/16 00:00 IMPRESSION: Abnormal but nonspecific bowel gas pattern. Chest X-Ray 12/17/16 00:00 IMPRESSION: NO ACUTE RADIOGRAPHIC FINDING IN THE CHEST. Renal Ultrasound 12/19/16 00:00 IMPRESSION: Mild left hydronephrosis. Mild left perinephric fluid. Suboptimal visualization of the right kidney. No right hydronephrosis. Increased echogenicity of the renal parenchyma, suggestive of medical renal disease. Assessment & Plan - Diagnosis (1) Acute kidney failure Qualifiers: Acute renal failure type: unspecified Qualified Code(s): N17.9 - Acute kidney failure, unspecified Is this a current diagnosis for this admission?: Yes Plan: Kidney failure unchanged. Possibly secondary to recent cardiac cath. Patient is drinking copious fluids. We will going to try and hold her IV fluids again and see if we cannot just keep her hydrated with orals. (2) Atypical chest pain Is this a current diagnosis for this admission?: Yes Plan: Await records from outside hospital. Apparently the patient recently had cardiac cath. (3) Falls Is this a current diagnosis for this admission?: Yes Plan: Continue fall precautions. Continue PT OT. (4) Fracture of right pelvis Qualifiers: Encounter type: initial encounter Pelvic bone location: pubis Sublocation of pubis: other portion of pubis Fracture type: closed Qualified Code(s): S32.591A - Other specified fracture of right pubis, initial encounter for closed fracture Is this a current diagnosis for this admission?: Yes Plan: Await rehab placement. (5) Intractable pain Is this a current diagnosis for this admission?: Yes Plan: Pain is much better controlled now. As needed [place] is available. Patient prefers to use Tylenol, however. (6) Abdominal bloating Is this a current diagnosis for this admission?: Yes Plan: Patient appears bloated but does not have any abdominal pain. (7) Wound of skin Plan: Bactrim. - Time Time Spent with patient: 25-34 minutes - Inpatient Certification Medical Necessity: Need Close Monitoring Due to Risk of Patient Decompensation
[2016-12-19] MEDS: CETIRIZINE 10 MG TABLET PO SCH (22:36)
[2016-12-20] MEDS: HEPARIN SOD (PORCINE) 5,000 UNIT/ML 1 ML SYRINGE SUBCUT SCH ×3 (05:16→21:37)
[2016-12-20 06:06] LABS: ANION GAP 8 (5-19); BLOOD UREA NITROGEN 22 mg/dL (7-20); CALCIUM 8.7 mg/dL (8.4-10.2); CARBON DIOXIDE 23 mmol/L (22-30); CHLORIDE 107 mmol/L (98-107); CREATININE RESULT 1.76 mg/dL (0.52-1.25); GLUCOSE 88 mg/dL (75-110); MAGNESIUM 1.9 mg/dL (1.6-2.3); POTASSIUM 4.5 mmol/L (3.6-5.0); SODIUM 138.1 mmol/L (137-145)
[2016-12-20] MEDS: SODIUM CHLORIDE NASAL SPRAY 44 ML NASL SCH ×4 (09:03→21:31)
[2016-12-20] MEDS: FLUTICASONE NASAL SPRAY 50 MCG/SPRY 120 SPRAY/16 GM NASL SCH (09:04)
[2016-12-20] MEDS: LIDOCAINE 5% (700 MG) TRANSDERMAL ADH..PATCH TP SCH (09:04)
[2016-12-20] MEDS: SULFAMETHOXAZOLE/TRIMETHOPRIM 800-160 MG TABLET PO SCH ×2 (09:06→21:30)
[2016-12-20] MEDS: ASPIRIN 81 MG TABLET, ENT COATED PO SCH (09:06)
[2016-12-20] MEDS: DOCUSATE SODIUM 100 MG CAPSULE PO SCH ×2 (09:06→17:14)
[2016-12-20] MEDS: CARVEDILOL 12.5 MG TABLET PO SCH ×2 (09:07→21:31)
[2016-12-20] MEDS: VALSARTAN 160 MG TABLET PO SCH (09:07)
--- NOTE | 2016-12-20 12:53 | PDOC PROGRESS REPORT ---
Subjective Progress Note for:: 12/20/16 Physical Exam Vital Signs: Temp Pulse Resp BP Pulse Ox 97.5 F 78 18 168/62 H 95 12/20/16 07:38 12/20/16 07:38 12/20/16 07:38 12/20/16 07:38 12/20/16 07:38 Intake & Output 12/19/16 12/20/16 12/21/16 06:59 06:59 06:59 Intake Total 1980 1484 Output Total 500 Balance 1980 984 Weight 65 kg 65.4 kg GENERAL: This is a well-developed and nourished appearing elderly white female resting in bed in no acute distress. HEART: Regular rate and rhythm. No murmurs, rubs or gallops. LUNGS: Clear to auscultation bilaterally with equal rise and fall of the chest. ABDOMEN: Soft, nontender, appears bloated with normoactive bowel sounds EXTREMETIES: No clubbing, cyanosis or edema. 2+ peripheral pulses bilaterally. NEURO: Awake, alert and oriented 3. Patient is hard of hearing. Results Laboratory Results: 12/20/16 05:28 12/20/16 05:28 Sodium 138.1 Potassium 4.5 Chloride 107 Carbon Dioxide 23 Anion Gap 8 BUN 22 H Creatinine 1.76 H Est GFR ( Amer) 33 L Est GFR (Non-Af Amer) 27 L Glucose 88 Calcium 8.7 Magnesium 1.9 Impressions: Hip/Pelvis X-Ray 12/15/16 18:54 IMPRESSION: RIGHT SUPERIOR AND RIGHT INFERIOR PUBIC RAMI FRACTURES. NO FEMORAL NECK FRACTURE. Abdomen X-Ray 12/17/16 00:00 IMPRESSION: Abnormal but nonspecific bowel gas pattern. Chest X-Ray 12/17/16 00:00 IMPRESSION: NO ACUTE RADIOGRAPHIC FINDING IN THE CHEST. Renal Ultrasound 12/19/16 00:00 IMPRESSION: Mild left hydronephrosis. Mild left perinephric fluid. Suboptimal visualization of the right kidney. No right hydronephrosis. Increased echogenicity of the renal parenchyma, suggestive of medical renal disease. Assessment & Plan - Diagnosis (1) Acute kidney failure Qualifiers: Acute renal failure type: unspecified Qualified Code(s): N17.9 - Acute kidney failure, unspecified Is this a current diagnosis for this admission?: Yes Plan: Kidney failure unchanged. Possibly secondary to recent cardiac cath. Patient is drinking copious fluids. Continue to monitor (2) Atypical chest pain Is this a current diagnosis for this admission?: Yes Plan: Await records from outside hospital. Apparently the patient recently had cardiac cath. (3) Falls Is this a current diagnosis for this admission?: Yes Plan: Continue fall precautions. Continue PT OT. (4) Fracture of right pelvis Qualifiers: Encounter type: initial encounter Pelvic bone location: pubis Sublocation of pubis: other portion of pubis Fracture type: closed Qualified Code(s): S32.591A - Other specified fracture of right pubis, initial encounter for closed fracture Is this a current diagnosis for this admission?: Yes Plan: Await rehab placement. Brina Zuleta hopes to have a bed by tomorrow or Sunday. (5) Intractable pain Is this a current diagnosis for this admission?: Yes Plan: Pain is much better controlled now. As needed [place] is available. Patient prefers to use Tylenol, however. (6) Abdominal bloating Is this a current diagnosis for this admission?: Yes Plan: Patient appears bloated but does not have any abdominal pain. - Time Time Spent with patient: Less than 15 minutes - Inpatient Certification Medical Necessity: Need Close Monitoring Due to Risk of Patient Decompensation
[2016-12-20] MEDS: CETIRIZINE 10 MG TABLET PO SCH (21:31)
[2016-12-21] MEDS: HEPARIN SOD (PORCINE) 5,000 UNIT/ML 1 ML SYRINGE SUBCUT SCH ×2 (05:19→13:11)
[2016-12-21] MEDS: CARVEDILOL 12.5 MG TABLET PO SCH (09:23)
[2016-12-21] MEDS: SULFAMETHOXAZOLE/TRIMETHOPRIM 800-160 MG TABLET PO SCH (09:23)
[2016-12-21] MEDS: ASPIRIN 81 MG TABLET, ENT COATED PO SCH (09:24)
[2016-12-21] MEDS: DOCUSATE SODIUM 100 MG CAPSULE PO SCH (09:25)
[2016-12-21] MEDS: VALSARTAN 160 MG TABLET PO SCH (09:25)
[2016-12-21] MEDS: LIDOCAINE 5% (700 MG) TRANSDERMAL ADH..PATCH TP SCH (09:26)
[2016-12-21] MEDS: FLUTICASONE NASAL SPRAY 50 MCG/SPRY 120 SPRAY/16 GM NASL SCH (09:26)
[2016-12-21] MEDS: SODIUM CHLORIDE NASAL SPRAY 44 ML NASL SCH ×2 (09:26→11:00)
[2016-12-21 12:17] VITALS: BP 141/62
--- NOTE | 2016-12-21 13:00 | PDOC DISCHARGE SUMMARY ---
General - Admit/Disc Date/PCP Admission Date/Primary Care Provider: 12/18/16 12:01 Discharge Date: 12/21/16 - Discharge Diagnosis (1) Acute kidney failure Is this a current diagnosis for this admission?: Yes Summary: Improved overall. (2) Atypical chest pain Is this a current diagnosis for this admission?: Yes Summary: Resolved (3) Falls Is this a current diagnosis for this admission?: Yes Summary: continue PT/OT at rehab (4) Fracture of right pelvis Is this a current diagnosis for this admission?: Yes Summary: Continue PT/OT at rehab (5) Intractable pain Is this a current diagnosis for this admission?: Yes Summary: Controlled with Tylenol. [facility] was offered, but the patient prefers to have only tylenol. (6) Abdominal bloating Is this a current diagnosis for this admission?: Yes Summary: resolved (8) Hypertension Summary: Continue management with increased dose or coreg and valsartan - Additional Information Resuscitation Status: Full Code Home Medications: Aspirin [Aspirin EC] 81 mg PO DAILY 12/15/16 Valsartan [Diovan 160 mg Tablet] 160 mg PO QAM 12/15/16 Sulfamethoxazole/Trimethoprim [Sulfamethoxazole-Tmp Ds Tablet] 1 tab PO BID MDD filled 12/11 for 10days 12/16/16 Acetaminophen [Tylenol 325 mg Tablet] 650 mg PO Q6HP PRN tablet 12/21/16 Carvedilol [Coreg 12.5 mg Tablet] 12.5 mg PO Q12 tablet 12/21/16 Cetirizine HCl [Zyrtec 10 mg Tablet] 10 mg PO QHS tablet 12/21/16 Fluticasone Propionate [Flonase Nasal Delight 50 Mcg/Delight 16 gm] 1 spray NASL DAILY spray.pump 12/21/16 Lidocaine [Lidoderm 5% (700 mg) Transdermal Patch] 1 patch TP DAILY #7 adh..patch 12/21/16 Sodium Chloride [[place] Nasal Delight 44 ml Bottle] 1 spray NASL ACHS bottle 12/21 History of Present Illness History of Present Illness: MARIPOSA SHEPHERD is a 86 year old white female who was admitted with acute renal failure, fall and pelvic fracture. Please see history of present illness below , as per admitting physician. 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 She had been in her usual state of health until sustaining a mechanical fall missing the last step of a staircase. This resulted in a fall to the right side and intractable pain with weightbearing prompting evaluation emergency room where she is found to have right sided inferior and superior rami fracture without femoral fracture. Patient states she otherwise feels well and is not on any new medications that may have contributed to fall. Her lab workup reveals renal failure but unknown baseline. She denies head trauma, loss of consciousness, chest pain or shortness of breath and is referred to the hospitalist for admission. Hospital Course Hospital Course: The patient was admitted and treated for her fracture. She received PT/OT and it was felt that she could benefit from subacute rehab. Her pain was managed with tylenol and norco. The patient tried 1/2 tab of norco, but didn't like it and didn't think that it helped. She preferred to continue on tylenol and lidocaine patch. She was found to have acute renal failure. It was felt that this was most likely due to a recent cath that she had. Her creatnine was initiall 1.8 and at discharge was 1.7. She did receive fluids. Renal US was done and showed medical renal disease and mild hydronephrosis on the left side without obstruction. She also has a skin wound of the LL leg that was present on admission from a previous incident. This was treated with bactrim and silvadine. the patient developed atypical chest pain that eventually resolved. She had a recent cardiac cath that she reported as normal. No further interventions, trops were negative. The patient was stable and felt to be ready for discharge. She waited for a bed to become available at [facility] ER. Physical Exam Vital Signs: Temp Pulse Resp BP Pulse Ox 97.9 F 82 14 141/62 H 94 12/21/16 11:43 12/21/16 11:43 12/21/16 11:43 12/21/16 11:43 12/21/16 11:43 Intake & Output 12/20/16 12/21/16 12/22/16 06:59 06:59 06:59 Intake Total 1484 1189 Output Total 500 500 Balance 984 689 Weight 65.4 kg 65.3 kg GENERAL: This is a well-developed and nourished appearing elderly white female resting in bed in no acute distress. HEART: Regular rate and rhythm. No murmurs, rubs or gallops. LUNGS: Clear to auscultation bilaterally with equal rise and fall of the chest. ABDOMEN: Soft, nontender, appears bloated with normoactive bowel sounds EXTREMETIES: No clubbing, cyanosis or edema. 2+ peripheral pulses bilaterally. NEURO: Awake, alert and oriented 3. Patient is hard of hearing. Results Laboratory Results: 12/20/16 05:28 Impressions: Hip/Pelvis X-Ray 12/15/16 18:54 IMPRESSION: RIGHT SUPERIOR AND RIGHT INFERIOR PUBIC RAMI FRACTURES. NO FEMORAL NECK FRACTURE. Abdomen X-Ray 12/17/16 00:00 IMPRESSION: Abnormal but nonspecific bowel gas pattern. Chest X-Ray 12/17/16 00:00 IMPRESSION: NO ACUTE RADIOGRAPHIC FINDING IN THE CHEST. Renal Ultrasound 12/19/16 00:00 IMPRESSION: Mild left hydronephrosis. Mild left perinephric fluid. Suboptimal visualization of the right kidney. No right hydronephrosis. Increased echogenicity of the renal parenchyma, suggestive of medical renal disease. Qualifiers PATEINT BEING DISCHARGED WITH ANY OF THE FOLLOWING DIAGNOSIS?: No Plan Time Spent: Less than 30 Minutes
== END 2016-12-21 16:49 | DRG 536 ==
LOC: ER 18:19 → INTOOBSV 20:37 → EH 20:37 → UNDOADMIN 20:52 → EH 20:52 → 2N 22:09 → 3S 12-17 10:11 → OBSVTOIN 12-18 12:01
PROVIDERS: ADMIT Internal Medicine; ATTEND Internal Medicine
PROC: 3E0234Z Introduction of Serum, Toxoid and Vaccine into Muscle, Percutaneous Approach (ICD-10-PCS; principal; 2016-12-21)
DX: S32.591A Other specified fracture of right pubis, initial encounter for closed fracture (principal); N17.9 Acute kidney failure, unspecified; N13.30 Unspecified hydronephrosis; L97.222 Non-pressure chronic ulcer of left calf with fat layer exposed; W10.9XXA Fall (on) (from) unspecified stairs and steps, initial encounter; R07.89 Other chest pain; R14.0 Abdominal distension (gaseous); H35.30 Unspecified macular degeneration; H54.7 Unspecified visual loss; I10 Essential (primary) hypertension; Z23 Encounter for immunization; Z79.82 Long term (current) use of aspirin; Z79.899 Other long term (current) drug therapy; Z91.81 History of falling
CPT/HCPCS: 36415; 71010; 74020; 76770; 80048; 81001; 82553; 83735; 84484; 85025; 90686; 93005; 93010; 99285; G0378; G8978-GP; G8979-GP; G8987-GO; G8988-GO; J0360; J3490; J7030

== ENCOUNTER 2018-07-24 11:58 | Emergency (ER) | payer MEDICARE, OTHER ==
[2018-07-24] MEDS ORDERED: ASPIRIN 81 MG TABLET, CHEWABLE PO ONE (12:59)
--- NOTE | 2018-07-24 13:01 | ER Document Report ---
ED Medical Screen (RME) - General Chief Complaint: Shortness Of Breath Stated Complaint: SHORT OF BREATH,WEAKNESS Time Seen by Provider: 07/24/18 12:53 Mode of Arrival: Ambulatory Information source: Patient, Relative TRAVEL OUTSIDE OF THE [place] IN LAST 30 DAYS: No - HPI Patient complains to provider of: JESSE Notes: 07/24/18 13:00 Patient here with some chest heaviness. No shortness of breath. She has leg swelling which is chronic. Exam No distress, nontoxic-appearing. Lungs clear and equal throughout. Heart regular rate and rhythm. Bilateral pitting edema to the lower extremities. Plan CBC, CMP, CPK, CK-MB, troponin, BNP, EKG, chest x-ray. An initial examination was made on the patient as part of the triage process, and it was determined a more comprehensive evaluation was necessary. Initial labs were ordered and patient was transferred to another provider in the ED who assumed care and finished evaluation and plan. - Related Data Allergies/Adverse Reactions: No Known Allergies Allergy (Verified 07/24/18 12:00) Past Medical History - Past Medical History Cardiac Medical History: Reports: Hx Hypertension Past Surgical History: Reports: Hx Appendectomy, Hx Bowel Surgery, Hx Cardiac Catheterization, Hx Tonsillectomy - Immunizations Hx Diphtheria, Pertussis, Tetanus Vaccination: Yes History of Influenza Vaccine for 12/2016 - 05/2017 Season: No Physical Exam - Vital signs Vitals: Temp Pulse Resp BP Pulse Ox 97.6 F 73 18 237/84 H 96 07/24/18 12:14 07/24/18 12:14 07/24/18 12:14 07/24/18 12:14 07/24/18 12:14 Course - Vital Signs Vital signs: Temp Pulse Resp BP Pulse Ox 97.6 F 73 18 237/84 H 96 07/24/18 12:14 07/24/18 12:14 07/24/18 12:14 07/24/18 12:14 07/24/18 12:14
[2018-07-24 13:32] LABS: ABSOLUTE EOSINOPHILS # (AUTO) 0.1 10^3/uL (0.0-0.6); ABSOLUTE LYMPHOCYTES (AUTO) 1.6 10^3/uL (0.5-4.7); ABSOLUTE MONOCYTES (AUTO) 0.3 10^3/uL (0.1-1.4); ABSOLUTE NEUT (AUTO) 1.4 10^3/uL (1.7-8.2); BASOPHILS % (AUTO) 0.5 % (0-2); EOSINOPHILS % (AUTO) 2.9 % (0-6); HEMATOCRIT 42.5 % (36.0-47.0); HEMOGLOBIN 14.2 g/dL (12.0-15.5); LYMPHOCYTES % (AUTO) 46.6 % (13-45); MEAN CORPUSCULAR HEMOGLOBIN 32.6 pg (27.0-33.4); MEAN CORPUSCULAR HGB CONC 33.4 g/dL (32.0-36.0); MEAN CORPUSCULAR VOLUME 97 fl (80-97); MONOCYTES % (AUTO) 10.2 % (3-13); PLATELET COUNT 167 10^3/uL (150-450); RED BLOOD COUNT 4.36 10^6/uL (3.72-5.28); RED CELL DISTRIBUTION WIDTH 13.9 % (11.5-14.0); SEGMENTED NEUTROPHILS % (AUTO) 39.8 % (42-78); TOTAL CELLS COUNTED % (AUTO) 100 %; WHITE BLOOD COUNT 3.4 10^3/uL (4.0-10.5)
[2018-07-24 13:53] LABS: ALANINE AMINOTRANSFERASE 20 U/L (9-52); ALBUMIN 4.2 g/dL (3.5-5.0); ALKALINE PHOSPHATASE 60 U/L (38-126); ANION GAP 8 (5-19); ASPARTATE AMINO TRANSFERASE 21 U/L (14-36); BILIRUBIN,DIRECT 0.2 mg/dL (0.0-0.4); BLOOD UREA NITROGEN 22 mg/dL (7-20); CALCIUM 9.6 mg/dL (8.4-10.2); CARBON DIOXIDE 28 mmol/L (22-30); CHLORIDE 104 mmol/L (98-107); CREATINE KINASE 47 U/L (30-135); GLUCOSE 94 mg/dL (75-110); POTASSIUM 4.5 mmol/L (3.6-5.0); SODIUM 140.1 mmol/L (137-145); TOTAL PROTEIN 6.5 g/dL (6.3-8.2)
--- NOTE | 2018-07-24 13:56 | RADIOLOGY REPORT (SQ) ---
EXAM DESCRIPTION: CHEST SINGLE VIEW COMPLETED DATE/TIME: 07/24/2018 1:45 pm REASON FOR STUDY: CP COMPARISON: 12/17/2016 NUMBER OF VIEWS: One view. TECHNIQUE: Single frontal radiographic view of the chest acquired. LIMITATIONS: None. FINDINGS: LUNGS AND PLEURA: There is scarring in the lung apices. No consolidation. Mild hyperexpa nsion. No effusions. MEDIASTINUM AND HILAR STRUCTURES: No masses. Contour normal. HEART AND VASCULAR STRUCTURES: Heart normal in size. Normal vasculature. BONES: No acute findings. HARDWARE: None in the chest. OTHER: No other significant finding. IMPRESSION: Scarring in the lung apices. No acute findings in the chest. TECHNICAL DOCUMENTATION: JOB ID: [id number] [employer]- All Rights Reserved Reading location - IP/workstation name: [email or web address]
[2018-07-24 14:05] LABS: CREATINE KINASE MB 1.38 ng/mL (<4.55); NT PRO BNP 718 pg/mL (<450)
[2018-07-24 14:06] LABS: TROPONIN I < 0.012 ng/mL
--- NOTE | 2018-07-24 18:21 | ER Document Report ---
ED General - General Chief Complaint: Shortness Of Breath Stated Complaint: SHORT OF BREATH,WEAKNESS Time Seen by Provider: 07/24/18 12:53 Primary Care Provider: JOHNNIE DAVENPORT MD [Primary Care Provider] - Follow up as needed Mode of Arrival: Ambulatory TRAVEL OUTSIDE OF THE [place] IN LAST 30 DAYS: No - HPI Notes: Patient is a 87-year-old female that presents to the emergency department for chief complaint of chest pain. Patient had 3 episodes of chest pain that occurred yesterday. She has not had any pain today. She described it as a substernal tightness and aching in her right arm. She denied associated shortness of breath diaphoresis nausea or vomiting. Patient denies history of coronary artery disease. She had a normal cardiac catheterization a year and a half ago. She does have a set rider at [facility] that she follows for her hypertension. Patient's family contacted their PCP today and were trying to get her an EKG but the PCP referred her to the emergency room. Past Medical History: Hypertension, CKD Past Surgical History: Reviewed in chart Social History: Denies drugs alcohol and tobacco. Family History: Reviewed and noncontributory for presenting illness Allergies: Reviewed, see documented allergy list. REVIEW OF SYSTEMS: CONSTITUTIONAL : No fever No chills No diaphoresis No recent illness EENT: No vision changes No congestion No sore throat CARDIOVASCULAR: chest pain No palpitations RESPIRATORY: No shortness of breath No cough No difficulty breathing GASTROINTESTINAL: No abdominal pain No nausea No vomiting No diarrhea GENITOURINARY: No dysuria No hematuria No difficulty urinating MUSCULOSKELETAL: No back pain No leg pain arm pain SKIN: No rashes No lesions LYMPHATIC: No swollen, enlarged glands. NEUROLOGICAL: No lightheadedness No headache No weakness No paresthesias PSYCHIATRIC: No anxiety No depression PHYSICAL EXAMINATION: Vital signs reviewed, nursing noted reviewed. GENERAL: Well-appearing, well-nourished and in no acute distress. HEAD: Atraumatic, normocephalic. EYES: Eyes appear normal, extraocular movements intact, sclera anicteric, conjunctiva are normal. ENT: nares patent, oropharynx clear without exudates. Moist mucous membranes. NECK: Normal range of motion, supple without lymphadenopathy LUNGS: Breath sounds clear to auscultation bilaterally and equal. No wheezes rales or rhonchi. HEART: Regular rate and rhythm without murmurs ABDOMEN: Soft, nontender, normoactive bowel sounds. No rebound, guarding, or rigidity. No masses appreciated. EXTREMITIES: Nontender, good range of motion, +2 lower extremity pitting edema NEUROLOGICAL: No focal neurological deficits. Moves all extremities spontaneously Motor and sensory grossly intact on exam. PSYCH: Normal mood, normal affect. SKIN: Warm, Dry, normal turgor, no rashes or lesions noted on exposed skin - Related Data Allergies/Adverse Reactions: No Known Allergies Allergy (Verified 07/24/18 12:00) Past Medical History - General Information source: Patient, Relative - Social History Smoking Status: Never Smoker Chew tobacco use (# tins/day): No Frequency of alcohol use: None Drug Abuse: None Family History: Reviewed & Not Pertinent Patient has suicidal ideation: No Patient has homicidal ideation: No - Past Medical History Cardiac Medical History: Reports: Hx Hypertension Renal/ Medical History: Denies: Hx Peritoneal Dialysis Past Surgical History: Reports: Hx Abdominal Surgery - intertine, Hx Appendectomy, Hx Bowel Surgery, Hx Cardiac Catheterization, Hx Tonsillectomy - Immunizations Hx Diphtheria, Pertussis, Tetanus Vaccination: Yes Physical Exam - Vital signs Vitals: Temp Pulse Resp BP Pulse Ox 97.6 F 73 18 237/84 H 96 07/24/18 12:14 07/24/18 12:14 07/24/18 12:14 07/24/18 12:14 07/24/18 12:14 Course - Re-evaluation Re-evalutation: 07/24/18 18:19 Vitals reviewed. Nursing notes reviewed. Patient has no ischemic changes on EKG. Her troponin is negative. She does have bilateral lower extremity edema which is chronic for her and she denies any change in her edema. She denies history of DVT or PE. I do not have a current suspicion for PE as a cause of her chest discomfort. Patient has been asymptomatic since yesterday evening. She had a negative cardiac stress test a year and a half ago and has no history of CAD. I did offer admission to the hospital for observation and repeat troponin however the patient does not wish to be admitted to the hospital. I feel this is an appropriate plan of care as long as she can establish outpatient follow-up and a stress test in the next few days. Patient was instructed to return to the emergency room if her chest pain reoccurs. Her family is in agreement with this plan of care and she was stable at discharge. Laboratory 07/24/18 07/24/18 07/24/18 13:16 13:16 13:16 WBC 3.4 L RBC 4.36 Hgb 14.2 Hct 42.5 MCV 97 MCH 32.6 MCHC 33.4 RDW 13.9 Plt Count 167 Seg Neutrophils % 39.8 L Lymphocytes % 46.6 H Monocytes % 10.2 Eosinophils % 2.9 Basophils % 0.5 Absolute Neutrophils 1.4 L Absolute Lymphocytes 1.6 Absolute Monocytes 0.3 Absolute Eosinophils 0.1 Absolute Basophils 0.0 Sodium 140.1 Potassium 4.5 Chloride 104 Carbon Dioxide 28 Anion Gap 8 BUN 22 H Creatinine 1.50 H Est GFR ( Amer) 40 L Est GFR (Non-Af Amer) 33 L Glucose 94 Calcium 9.6 Total Bilirubin 1.0 Direct Bilirubin 0.2 Neonat Total Bilirubin Not Reportable Neonat Direct Bilirubin Not Reportable Neonat Indirect Bili Not Reportable AST 21 ALT 20 Alkaline Phosphatase 60 Creatine Kinase 47 CK-MB (CK-2) 1.38 Troponin I < 0.012 NT-Pro-B Natriuret Pep 718 H Total Protein 6.5 Albumin 4.2 Chest X-Ray 07/24/18 12:59 IMPRESSION: Scarring in the lung apices. No acute findings in the chest. - Vital Signs Vital signs: Temp Pulse Resp BP Pulse Ox 97.6 F 73 18 237/84 H 96 07/24/18 12:14 07/24/18 12:14 07/24/18 12:14 07/24/18 12:14 07/24/18 12:14 - Laboratory Result Diagrams: 07/24/18 13:16 07/24/18 13:16 Laboratory results interpreted by me: 07/24/18 07/24/18 07/24/18 13:16 13:16 13:16 WBC 3.4 L Seg Neutrophils % 39.8 L Lymphocytes % 46.6 H Absolute Neutrophils 1.4 L BUN 22 H Creatinine 1.50 H Est GFR ( Amer) 40 L Est GFR (Non-Af Amer) 33 L NT-Pro-B Natriuret Pep 718 H - EKG Interpretation by Me Additional EKG results interpreted by me: 07/24/18 18:21 Interpreted by myself 1206: Normal sinus rhythm, rate 69, normal axis, incomplete right bundle branch block, no STEMI Discharge - Discharge Clinical Impression: Chest pain Qualifiers: Chest pain type: unspecified Qualified Code(s): R07.9 - Chest pain, unspecified Condition: Stable Disposition: HOME, SELF-CARE Instructions: Chest Pain of Unclear Cause (OM) Additional Instructions: Please return to the emergency department if you have any worsening, or concern of your symptoms. Please return to the emergency department if you develop chest pain, difficulty breathing, severe abdominal pain, or ongoing vomiting. Please follow-up with your primary care physician in 2-3 days and any other recommended physicians. If prescribed, take all medications as directed. If you have any questions or concerns do not hesitate to return the emergency department for evaluation. Ask your primary care doctor or your set rider at [facility] to prescribe a stress test in the next few days Referrals: JOHNNIE DAVENPORT MD [Primary Care Provider] - Follow up in 3-5 days
[2018-07-24 18:36] VITALS: BP 222/97
--- NOTE | 2018-07-24 23:36 | EKG REPORT ---
SEVERITY:- ABNORMAL ECG - SINUS RHYTHM INCOMPLETE RIGHT BUNDLE BRANCH BLOCK : Confirmed by: Fercho Elena 24-Jul-2018 23:36:01
== END 2018-07-24 18:40 | disposition home or self-care (01) ==
LOC: ER 11:58
DX: R07.89 Other chest pain (principal); J98.4 Other disorders of lung; I45.10 Unspecified right bundle-branch block; M79.601 Pain in right arm; I10 Essential (primary) hypertension; R60.0 Localized edema
CPT/HCPCS: 93005; 99285; 36415; 82553; 82550; 85025; 80053; 84484; 83880; 71045; 93010; A9270